=== PATIENT | female | born 1965 | race Caucasian/White ===

== ENCOUNTER 2020-12-08 21:05 | Emergency (ER) | payer MEDICAID ==
[~2020-12-08] VITALS: Ht 162.6 cm; Wt 69.9 kg
[2020-12-08 21:06] VITALS: BP 161/108
--- NOTE | 2020-12-08 21:08 | NUR ---
MARLA ALS TO ER BED 3
--- NOTE | 2020-12-08 21:15 | NUR ---
55 YO F BIBA FOR C/O LINARES <1 DAY. PT STATES, " I WAS AT MY DAUGHTERS [place] TODAY AND HAD A SEVERE HEADACHE." PT DENIES LIGHTHEADEDNESS. AMB STEADY GAIT + N/V. ABD SOFT NON DISTENDED. SKIN INTACT. GURNEY LOCKED IN LOWEST POSITION. SAFETY PRECAUTIONS IN PLACE. HX: HTN NKA
[2020-12-08] MEDS ORDERED: NACL 0.9% 1,000 ML IV ONE (21:45)
[2020-12-08] MEDS ORDERED: ACETAMINOPHEN EXTRA STRENGTH 500 MG TAB PO ONE (21:45)
[2020-12-08] MEDS ORDERED: KETOROLAC 30 MG/ML VIAL IVP ONE (21:45)
[2020-12-08] MEDS ORDERED: METOCLOPRAMIDE 10 MG/2 ML INJ VIAL IVP ONE (21:45)
[2020-12-08 22:06] LABS: BASOPHILS # (AUTO) 0.1 K/uL (0.00-0.22); BASOPHILS % (AUTO) 0.6 % (0.0-2.0); EOSINOPHILS # (AUTO) 0.3 K/uL (0-0.4); EOSINOPHILS % (AUTO) 3.4 % (0.0-4.0); HEMATOCRIT 36.9 % (36-48); HEMOGLOBIN 12.4 g/dL (12.0-16.0); LYMPHOCYTES # (AUTO) 1.6 K/uL (2.5-16.5); LYMPHOCYTES % (AUTO) 18.9 % (20.5-51.1); MEAN CORPUSCULAR HEMOGLOBIN 31 pg (27-31); MEAN CORPUSCULAR HGB CONC 34 g/dL (33-37); MONOCYTES # (AUTO) 0.4 K/uL (0.8-1.0); MONOCYTES % (AUTO) 4.5 % (1.7-9.3); NEUTROPHILS # (AUTO) 6.3 K/uL (1.8-7.7); NEUTROPHILS % (AUTO) 72.6 % (42.2-75.2); PLATELET COUNT (AUTO) 280 K/uL (140-450); RED BLOOD CELL COUNT(AUTO) 4.06 MIL/uL (4.20-5.40); WHITE BLOOD COUNT (AUTO) 8.6 K/uL (4.8-10.8)
[2020-12-08 22:26] LABS: ANION GAP 13.9 (8-16); CARBON DIOXIDE 28.7 mmol/L (21-32); CREATININE 0.9 mg/dL (0.6-1.3); POTASSIUM 3.6 mmol/L (3.5-5.1)
[2020-12-08] MEDS ORDERED: METO-486 PO (23:21)
[2020-12-08] MEDS ORDERED: IBUP-2213 PO (23:21)
[2020-12-09 00:09] VITALS: BP 145/88
--- NOTE | 2020-12-09 00:10 | NUR ---
Patient discharged with v/s stable. Written and verbal after care instructions given and explained. Patient alert, oriented and verbalized understanding of instructions. Ambulatory with steady gait. All questions addressed prior to discharge. ID band removed. Patient advised to follow up with PMD. Rx of IBUPROFEN AND REGLAN given. Patient educated on indication of medication including possible reaction and side effects. Opportunity to ask questions provided and answered.
== END 2020-12-09 00:10 | disposition home or self-care (01) ==
LOC: MED 21:05
DX: R51.9 Headache, unspecified (principal); I10 Essential (primary) hypertension; Z79.899 Other long term (current) drug therapy
CPT/HCPCS: 36415; 70450; 80048; 85025; 96361; 96374; 96375; 99284; J1885; J2765; J7030